=== PATIENT | female | born 1965 | race Caucasian/White ===

== ENCOUNTER 2019-07-04 17:13 | Emergency (ER) | payer MEDICARE ==
[~2019-07-04] VITALS: Ht 167.6 cm; Wt 79.4 kg
== END 2019-07-04 20:37 | disposition home or self-care (01) ==
LOC: ER 17:13
DX: S61.211A Laceration without foreign body of left index finger without damage to nail, initial encounter (principal); W26.0XXA Contact with knife, initial encounter; Z88.1 Allergy status to other antibiotic agents
CPT/HCPCS: 12001; 99282-25

== ENCOUNTER 2025-02-18 07:59 | Emergency (ER) | payer OTHER ==
[~2025-02-18] VITALS: Ht 167.6 cm; Wt 72.6 kg
[2025-02-18] MEDS ORDERED: HYDROmorphone HCl/Pf 1MG SYR IM ONE (09:45)
[2025-02-18] MEDS ORDERED: IBUP600 PO (10:24)
[2025-02-18] MEDS ORDERED: Roxicodone5 MG PO (10:24)
[2025-02-18 10:43] VITALS: BP 145/81
== END 2025-02-18 11:02 | disposition home or self-care (01) ==
LOC: ER 07:59
DX: S42.212A Unspecified displaced fracture of surgical neck of left humerus, initial encounter for closed fracture (principal); S42.292A Other displaced fracture of upper end of left humerus, initial encounter for closed fracture; Z88.1 Allergy status to other antibiotic agents; W08.XXXA Fall from other furniture, initial encounter
CPT/HCPCS: 24505; 73030; 73200; 96372-59; 99284-25; A9270; J1171

== ENCOUNTER 2025-03-02 18:52 | Emergency (ER) | payer OTHER ==
[~2025-03-02] VITALS: Ht 167.6 cm; Wt 72.6 kg
[~2025-03-02 18:52] MED LIST: IBUP600 PO; Roxicodone5 MG PO
[2025-03-02 19:21] VITALS: BP 130/77
[2025-03-02] MEDS ORDERED: Ondansetron 4 MG SoluTab MM ONE (19:55)
[2025-03-02] MEDS ORDERED: OxyCODONE 7.5 mg/Acetam 325 mg TABLET PO ONE (19:55)
== END 2025-03-02 21:02 | disposition home or self-care (01) ==
LOC: ER 18:52
DX: T84.428A Displacement of other internal orthopedic devices, implants and grafts, initial encounter (principal); S42.202D Unspecified fracture of upper end of left humerus, subsequent encounter for fracture with routine healing; F17.200 Nicotine dependence, unspecified, uncomplicated; X58.XXXD Exposure to other specified factors, subsequent encounter; Z76.0 Encounter for issue of repeat prescription; Z88.1 Allergy status to other antibiotic agents
CPT/HCPCS: 99282; A9270